=== PATIENT | female | born 1940 | race Caucasian/White ===

== ENCOUNTER 2016-09-29 22:25 | Observation (INO) | payer MEDICARE, OTHER ==
[~2016-09-29] VITALS: Ht 167.6 cm; Wt 80.3 kg
[~2016-09-29 22:25] MED LIST: ELAVIL 50 MG TA50 MG PO; GLUCOTROL XL 22.5 MG PO; LASIX20 MG PO; LEVAQUIN500 MG PO; LISINOPRIL5 MG PO; LOPRESSOR 50 MG50 MG PO; MEDROL DOSEPAK 24 MG PO; MELOXICAM7.5 MG PO; PLAVIX 75 MG TA75 MG PO; RANEXA500 MG PO; SPIRONOLACTONE25 MG PO; VITAMIN D2000 UNI1 PO
[2016-09-29 23:19] LABS: HEMOGLOBIN 13.9 gm/dl (12.3-15.3); RED BLOOD COUNT 4.39 M/UL (4.00-5.10); WHITE BLOOD COUNT 7.6 K/UL (4.5-11.0)
[2016-09-29 23:42] LABS: BUN/CREATININE RATIO 23 (0-10)
[2016-09-30] MEDS ORDERED: PLAVIX 75 MG TA75 MG PO (02:25)
[2016-09-30 05:47] LABS: BUN/CREATININE RATIO 24 (0-10)
[2016-09-30] MEDS ORDERED: ASPIRIN81 MG PO (16:18)
[2016-09-30] MEDS ORDERED: IMDUR ER TAB 3030 MG PO (16:19)
== END 2016-09-30 18:04 | disposition home or self-care (01) ==
LOC: ER1 22:25 → M/S 09-30 00:34 → ZEROF 09-30 00:34 → M/S 09-30 02:03
PROVIDERS: Student in an Organized Health Care Education/Training Program; ADMIT Hospitalist
DX: R07.89 Other chest pain (principal); I10 Essential (primary) hypertension; I45.10 Unspecified right bundle-branch block; I44.4 Left anterior fascicular block; E78.5 Hyperlipidemia, unspecified; I87.2 Venous insufficiency (chronic) (peripheral); I25.10 Atherosclerotic heart disease of native coronary artery without angina pectoris; E11.9 Type 2 diabetes mellitus without complications; E66.9 Obesity, unspecified; J45.909 Unspecified asthma, uncomplicated; M10.9 Gout, unspecified; I49.3 Ventricular premature depolarization; Z79.82 Long term (current) use of aspirin; Z79.02 Long term (current) use of antithrombotics/antiplatelets; Z79.899 Other long term (current) drug therapy; Z86.73 Personal history of transient ischemic attack (TIA), and cerebral infarction without residual deficits; Z88.0 Allergy status to penicillin; Z88.5 Allergy status to narcotic agent; Z88.2 Allergy status to sulfonamides; Z88.6 Allergy status to analgesic agent
CPT/HCPCS: 36415; 71010; 80048; 80053; 80061; 82550; 82553; 83735; 83874; 84439; 84443; 84484; 85025; 93005; 96374; 99285; G0378; J2060

== ENCOUNTER 2021-02-03 12:57 | Emergency (ER) | payer MEDICARE, OTHER ==
[~2021-02-03 12:57] MED LIST changes: +ASPIRIN81 MG PO; +IMDUR ER TAB 3030 MG PO; +LIPITOR TAB 1010 MG PO; +MECLIZINE HCL25 MG PO; +PIOGLITAZONE HC30 MG PO
[2021-02-03 13:54] LABS: HEMOGLOBIN 14.1 gm/dl (12.3-15.3); RED BLOOD COUNT 4.52 M/UL (4.00-5.10); WHITE BLOOD COUNT 8.4 K/UL (4.5-11.0)
[2021-02-03 14:25] LABS: BUN/CREATININE RATIO 14 (0-10)
[2021-02-03 14:44] LABS: BORDETELLA PARAPERTUSSIS Not Detected (Not Detectd); BORDETELLA PERTUSSIS Not Detected (Not Detectd); CHLAMYDIA PNEUMONIAE Not Detected (Not Detectd); CORONAVIRUS HKU1 Not Detected (Not Detectd); CORONAVIRUS NL63 Not Detected (Not Detectd); CORONAVIRUS OC43 Not Detected (Not Detectd); CORONOAVIRUS 229E Not Detected (Not Detectd); HUMAN METAPNEUMOVIRUS Not Detected (Not Detectd); HUMAN RHINOVIRUS/ENTEROVIRUS Not Detected (Not Detectd); INFLUENZA A Not Detected (Not Detectd); INFLUENZA B Not Detected (Not Detectd); MYCOPLASMA PNEUMONIAE Not Detected (Not Detectd); PARAINFLUENZA VIRUS 1 Not Detected (Not Detectd); PARAINFLUENZA VIRUS 2 Not Detected (Not Detectd); PARAINFLUENZA VIRUS 3 Not Detected (Not Detectd); PARAINFLUENZA VIRUS 4 Not Detected (Not Detectd); RESPIRATORY SYNCYTIAL VIRUS Not Detected (Not Detectd)
[2021-02-03] MEDS ORDERED: TESSALON PERLE100 MG PO (16:21)
[2021-02-03 17:09] LABS: SARS-CoV-2 NOT DETECTED (Not Detectd)
== END 2021-02-03 17:20 | disposition home or self-care (01) ==
LOC: ER1 12:57
PROVIDERS: Preventive Medicine Occupational Medicine
DX: R05.9 Cough, unspecified (principal); R06.02 Shortness of breath; I10 Essential (primary) hypertension; F17.200 Nicotine dependence, unspecified, uncomplicated; Z20.822 Contact with and (suspected) exposure to COVID-19
CPT/HCPCS: 36600; 71045; 80053; 81001; 82550; 82553; 82803; 83605; 83874; 83880; 84484; 85025; 85652; 86140; 87077; 87086; 87186; 87633; 93005; 94664; 96374; 96375; 99285; J0696; J2930

== ENCOUNTER 2021-02-26 15:47 | Emergency (ER) | payer MEDICARE, OTHER ==
[~2021-02-26 15:47] MED LIST changes: +TESSALON PERLE100 MG PO
[2021-02-26 17:40] LABS: HEMOGLOBIN 14.6 gm/dl (12.3-15.3); RED BLOOD COUNT 4.72 M/UL (4.00-5.10); WHITE BLOOD COUNT 6.3 K/UL (4.5-11.0)
[2021-02-26 18:05] LABS: BUN/CREATININE RATIO 13 (0-10)
[2021-02-26] MEDS ORDERED: K-TAB ER20 MEQ PO (19:46)
== END 2021-02-26 21:36 | disposition home or self-care (01) ==
LOC: ER1 15:47
PROVIDERS: Emergency Medicine
DX: R06.02 Shortness of breath (principal); I10 Essential (primary) hypertension; E78.5 Hyperlipidemia, unspecified; E11.9 Type 2 diabetes mellitus without complications; Z20.822 Contact with and (suspected) exposure to COVID-19
CPT/HCPCS: 71045; 80053; 82550; 82553; 83874; 83880; 84484; 85025; 93005; 99285; Q9967; U0002

== ENCOUNTER 2021-04-25 14:06 | Emergency (ER) | payer MEDICARE, OTHER ==
[~2021-04-25 14:06] MED LIST changes: +K-TAB ER20 MEQ PO
[2021-04-25 14:43] LABS: HEMOGLOBIN 13.9 gm/dl (12.3-15.3); RED BLOOD COUNT 4.53 M/UL (4.00-5.10); WHITE BLOOD COUNT 5.7 K/UL (4.5-11.0)
[2021-04-25 15:05] LABS: BUN/CREATININE RATIO 18 (0-10)
== END 2021-04-25 17:25 | disposition left against medical advice (07) ==
LOC: ER1 14:06
PROVIDERS: Emergency Medicine
DX: Z53.21 Procedure and treatment not carried out due to patient leaving prior to being seen by health care provider (principal)
CPT/HCPCS: 0240U; 71045; 80053; 82550; 82553; 83874; 84484; 85025; 93005

== ENCOUNTER 2021-08-12 10:15 | Emergency (ER) | payer MEDICARE, OTHER ==
[2021-08-12 12:56] LABS: HEMOGLOBIN 14.4 gm/dl (12.3-15.3); RED BLOOD COUNT 4.69 M/UL (4.00-5.10); WHITE BLOOD COUNT 6.2 K/UL (4.5-11.0)
[2021-08-12 13:21] LABS: BUN/CREATININE RATIO 14 (0-10)
[2021-08-12] MEDS ORDERED: CEPHALEXIN500 MG PO (14:30)
== END 2021-08-12 14:40 | disposition home or self-care (01) ==
LOC: ER1 10:15
PROVIDERS: Physician Assistant
DX: N39.0 Urinary tract infection, site not specified (principal); Z20.822 Contact with and (suspected) exposure to COVID-19; I11.9 Hypertensive heart disease without heart failure
CPT/HCPCS: 0240U; 71045; 80053; 81001; 82550; 82553; 83605; 83880; 84484; 85025; 87086; 93005; 99285